=== PATIENT | female | born 1960 | race Caucasian/White ===

== ENCOUNTER 2018-02-22 12:09 | Emergency (ER) | payer OTHER ==
[~2018-02-22] VITALS: Ht 157.5 cm; Wt 69.9 kg
[2018-02-22 12:19] VITALS: BP 173/95
[2018-02-22] MEDS ORDERED: KETOROLAC TROMETH 60MG/2ML VIAL IM ONE (13:15)
== END 2018-02-22 15:06 | disposition home or self-care (01) ==
LOC: ER 12:09
DX: S63.105A Unspecified dislocation of left thumb, initial encounter (principal); S62.502A Fracture of unspecified phalanx of left thumb, initial encounter for closed fracture; W01.0XXA Fall on same level from slipping, tripping and stumbling without subsequent striking against object, initial encounter; Y93.E1 Activity, personal bathing and showering; Y92.89 Other specified places as the place of occurrence of the external cause; Y99.8 Other external cause status
CPT/HCPCS: 26725; 73140; 96372; 99284; J1885; 29130

== ENCOUNTER 2018-07-25 14:05 | Inpatient (IN) | payer OTHER ==
[~2018-07-25] VITALS: Ht 162.6 cm; Wt 75.9 kg
[2018-07-25] VITALS (26 sets, daily range): BP systolic 92–151; BP diastolic 73–112
[2018-07-25] MEDS ORDERED: EPINEPHrine HCL 1 MG/10 ML SYRG IV ONE (14:06)
[2018-07-25] MEDS ORDERED: SUCCINYLCHOLINE CHLORIDE 20 MG/ML 10ML VIAL IV ONE (14:07)
[2018-07-25] MEDS ORDERED: ETOMIDATE (2MG/ML) 20ML VIAL IV ONE (14:07)
[2018-07-25] MEDS ORDERED: NOREPINEPHRINE 8 MG/250ML KIT 250 ML IV ONE (14:09)
[2018-07-25] MEDS ORDERED: MIDAZOLAM DRIP 50 mg/50mL 50 ML IV ONE (14:14)
[2018-07-25] MEDS ORDERED: SODIUM CHLORIDE 0.9% 1,000 ML IVB ONE (14:16)
[2018-07-25] MEDS: MIDAZOLAM DRIP 50 mg/50mL 50 ML IV SCH ×2 (14:19→19:24)
[2018-07-25] MEDS: NOREPINEPHRINE 8 MG/250ML KIT 250 ML IV SCH (14:20)
[2018-07-25] MEDS ORDERED: IOHEXOL 350 MG/ML 100ML IJ ONE (15:51)
[2018-07-25 15:53] LABS: Hemoglobin 11.4 g/dL (12.2-16.2)
[2018-07-25 15:54] LABS: Hematocrit 36.4 % (36.0-46.0); Mean Corpuscular Hemoglobin 30.1 pg (28.0-32.0); Mean Corpuscular Hgb Conc. 31.2 g/dL (32.0-36.0); Mean Corpuscular Volume 96.4 fL (80.0-100.0); Platelet Count (auto) 336 10^3/uL (140-450); Red Blood Cells 3.77 10^6/uL (4.0-5.20); Red Cell Distribution Width 13.8 % (11.8-14.3)
[2018-07-25 16:05] LABS: Band Neutrophils % (manual) 0; Basophils % (manual) 0 (0.0-2.0); Blast Cells 0; Eosinophils % (manual) 0 (0-7); Promyelocytes % 0; Reactive Lymphocytes 0; White Blood Cell 33.5 10^3/uL (4.4-10.8)
[2018-07-25 16:09] LABS: Albumin 2.7 g/dL (3.4-5.0); Anion Gap 27 (5-15); Blood Urea Nitrogen 21 mg/dL (7-18); Calcium 7.3 mg/dL (8.5-10.1); Carbon Dioxide 11 mmol/L (21-32); Chloride 100 mmol/L (98-107); Glucose 327 mg/dL (74-106); Magnesium 2.6 mg/dL (1.6-2.6); Sodium 138 mmol/L (136-145)
[2018-07-25 16:11] LABS: BUN/Creatinine Ratio 13.1; Blood Alcohol < 3.0 mg/dL (0-5); GFR African American 42 mL/min; GFR Non-African American 35 mL/min
[2018-07-25 16:14] LABS: INR 1.05 (0.9-1.15); Partial Thromboplastin Time 27.4 sec (23.78-33.04); Prothrombin Time 11.2 sec (9.27-12.13)
[2018-07-25 16:18] LABS: Alanine Aminotransferase 66 U/L (13-56); Alkaline Phosphatase 59 U/L (45-117); Aspartate Aminotransferase 70 U/L (15-37); Bilirubin, Total 0.3 mg/dL (0.2-1.0); Total Protein 5.3 g/dL (6.4-8.2)
[2018-07-25 16:20] LABS: Urine Bacteria NONE SEEN /hpf (None Seen); Urine Blood 2+ /uL (Negative); Urine Budding Yeast OCCASIONAL /hpf (None Seen); Urine Hyaline Cast FEW /lpf (0 - 2); Urine Mucus FEW (None Seen); Urine WBC 2 /hpf (0 - 5)
[2018-07-25 16:27] LABS: Lactic Acid w/Reflex 16.1 mmol/L (0.4-2.0)
[2018-07-25] MEDS: SODIUM CHLORIDE 0.9% 1,000 ML IV SCH ×5 (16:29→23:28)
[2018-07-25] MEDS ORDERED: InsuLIN R (HUMAN) 100 UNITS in SODIUM CHL 0.9% 99 ML IV SCH (16:29)
[2018-07-25] MEDS ORDERED: NITROGLYCERIN 0.4 MG SL TAB SL PRN (16:30)
[2018-07-25] MEDS ORDERED: LORazepam 2MG/ML-1ML VIAL IV PRN (16:30)
[2018-07-25] MEDS ORDERED: MORPHINE SULF INJ 2 MG/ML SYRINGE 1ML IV PRN (16:30)
[2018-07-25] MEDS ORDERED: SODIUM CHLORIDE 0.9% 1,000 ML IV ONE (16:30)
[2018-07-25] MEDS ORDERED: CLINDAMYCIN 900MG IV 50 ML IV ONE (16:30)
[2018-07-25] MEDS ORDERED: POTASSIUM CHL 20MEQ/100ML 100 ML IV ONE (16:30)
[2018-07-25] MEDS: ACCU-CHEK COMFORT CURVE STRIP VI SCH ×3 (16:30→19:30)
[2018-07-25] MEDS ORDERED: PIPERACILLIN-TAZOB 3.375GM 100 ML IV ONE (16:30)
[2018-07-25] MEDS ORDERED: SODIUM CHLORIDE 0.9% 2,000 ML IV ONE (16:30)
[2018-07-25] MEDS ORDERED: PANTOPRAZOLE 40 MG/10 ML VIAL IV ONE (16:30)
[2018-07-25 16:40] LABS: Lymphocytes % (manual) 28 (10.0-50.0); Metamyelocytes % 1; Monocytes % (manual) 7 (0-12); Myelocytes % 1
[2018-07-25 16:55] LABS: Amylase 105 U/L (25-115); Lipase 152 U/L (73-393)
[2018-07-25 17:16] LABS: Alcohol, Urine < 3.0 mg/dL (0-5); Amphetamine Screen, Urine POSITIVE (NEGATIVE); Barbiturate Scree,Urine NEGATIVE (NEGATIVE); Benzodiazephine Screen, Urine NEGATIVE (NEGATIVE); Cannabinoid Screen, Urine POSITIVE (NEGATIVE); Cocaine Screen, Urine NEGATIVE (NEGATIVE); Opiate Scree,Urine POSITIVE (NEGATIVE); Phencyclidine Screen, Urine NEGATIVE (NEGATIVE)
[2018-07-25 18:58] LABS: Hematocrit 35.7 % (36.0-46.0); Hemoglobin 11.5 g/dL (12.2-16.2)
[2018-07-25 19:19] LABS: BUN/Creatinine Ratio 17.3; Calcium 7.4 mg/dL (8.5-10.1); Potassium 3.7 mmol/L (3.5-5.1)
[2018-07-25 19:25] LABS: Lactic Acid w/Reflex 6.3 mmol/L (0.4-2.0)
[2018-07-25] MEDS ORDERED: LIDOCAINE 2%HCL (LOCAL ANESTH.) INJ 20ML MDV ONE (20:09)
[2018-07-25] MEDS ORDERED: IODIXANOL 320MG/ML 100ML BTL IV ONE ×3 (20:09→21:54)
[2018-07-25] MEDS ORDERED: SODIUM CHLORIDE 0.9% 1,000 ML IV SCH (20:29)
[2018-07-25] MEDS ORDERED: fentaNYL CITRATE 100 MCG/2 ML VL ONE (22:19)
[2018-07-25] MEDS ORDERED: DEXTROSE (50%) 50ML SYRG IV PRN (22:30)
[2018-07-25] MEDS: PANTOPRAZOLE 40 MG/10 ML VIAL IV SCH (23:42)
[2018-07-25] MEDS: CLINDAMYCIN 600MG IV 50 ML IV SCH (23:42)
[2018-07-26] VITALS (101 sets, daily range): BP systolic 102–161; BP diastolic 52–111
[2018-07-26] MEDS ORDERED: InsuLIN REG 1unit/0.01ml Soln (100units/ml) SC SCH
[2018-07-26] MEDS ORDERED: ACCU-CHEK COMFORT CURVE STRIP VI SCH
[2018-07-26 00:30] LABS: BUN/Creatinine Ratio 24.1; Calcium 6.4 mg/dL (8.5-10.1); Potassium 3.4 mmol/L (3.5-5.1)
[2018-07-26] MEDS: PIPERACILLIN-TAZOB 3.375GM 100 ML IV SCH ×5 (00:54→22:05)
[2018-07-26 00:57] LABS: Hematocrit 36.2 % (36.0-46.0); Hemoglobin 11.9 g/dL (12.2-16.2)
[2018-07-26] MEDS ORDERED: DULO60CA PO (02:57)
[2018-07-26] MEDS ORDERED: ARIP2TAB PO (02:57)
[2018-07-26] MEDS ORDERED: LISD60CA PO (02:57)
[2018-07-26] MEDS ORDERED: SUMA50TA2 (02:57)
[2018-07-26] MEDS ORDERED: TRAZ100T2 PO (02:57)
[2018-07-26] MEDS ORDERED: LIOT5TAB PO (02:57)
[2018-07-26] MEDS ORDERED: [UNRECOGNIZED DRUG - CODE] PO (02:57)
[2018-07-26] MEDS ORDERED: LEVO88TA36 PO (02:57)
[2018-07-26] MEDS ORDERED: MIRT15TA3 PO (02:57)
[2018-07-26] MEDS ORDERED: HYDR-4072 PO (02:57)
[2018-07-26] MEDS ORDERED: DENO60SO SC (02:57)
[2018-07-26] MEDS ORDERED: POLY33504 PO (02:57)
[2018-07-26] MEDS: MIDAZOLAM DRIP 50 mg/50mL 50 ML IV SCH ×5 (04:45→22:06)
[2018-07-26 04:57] LABS: Amylase 529 U/L (25-115); Lipase 369 U/L (73-393)
[2018-07-26] MEDS: SODIUM CHLORIDE 0.9% 1,000 ML IV SCH ×4 (05:10→12:34)
[2018-07-26] MEDS: InsuLIN REG 1unit/0.01ml Soln (100units/ml) SC SCH ×3 (05:51→18:00)
[2018-07-26] MEDS: ACCU-CHEK COMFORT CURVE STRIP VI SCH ×3 (05:51→18:09)
[2018-07-26] MEDS: DEXTROSE (50%) 50ML SYRG IV PRN (06:07)
[2018-07-26 10:01] LABS: Alanine Aminotransferase 156 U/L (13-56); Alkaline Phosphatase 53 U/L (45-117); Bilirubin, Total 0.4 mg/dL (0.2-1.0); Total Protein 5.2 g/dL (6.4-8.2)
[2018-07-26] MEDS: PANTOPRAZOLE 40 MG/10 ML VIAL IV SCH ×2 (10:08→22:06)
[2018-07-26] MEDS: CLINDAMYCIN 600MG IV 50 ML IV SCH ×2 (10:08→18:08)
[2018-07-26 10:10] LABS: Anion Gap 11 (5-15); Aspartate Aminotransferase 124 U/L (15-37); BUN/Creatinine Ratio 25.2; Blood Urea Nitrogen 30 mg/dL (7-18); Calcium 6.1 mg/dL (8.5-10.1); Carbon Dioxide 20 mmol/L (21-32); Chloride 110 mmol/L (98-107); GFR African American 60 mL/min; GFR Non-African American 49 mL/min; Glucose 126 mg/dL (74-106); Potassium 3.1 mmol/L (3.5-5.1); Sodium 141 mmol/L (136-145)
[2018-07-26 10:11] LABS: Albumin 2.6 g/dL (3.4-5.0)
[2018-07-26 10:12] LABS: Basophils # (auto) 0 uL; Basophils % (auto) 0.2 % (0.0-2.0); Eosinophils # (auto) 0 uL; Hematocrit 34.8 % (36.0-46.0); Hemoglobin 11.5 g/dL (12.2-16.2); Lymphocytes # (auto) 2.5 uL; Lymphocytes % (auto) 11.1 % (10.0-50.0); Mean Corpuscular Volume 91.1 fL (80.0-100.0); Monocytes # (auto) 2.1 uL; Monocytes % (auto) 9.1 % (0.0-12.0); Neutrophils # (auto) 18 uL; Neutrophils % (auto) 79.6 % (37.0-80.0); Red Blood Cells 3.82 10^6/uL (4.0-5.20); White Blood Cell 22.7 10^3/uL (4.4-10.8)
[2018-07-26 10:13] LABS: Mean Corpuscular Hemoglobin 30.1 pg (28.0-32.0); Platelet Count (auto) 260 10^3/uL (140-450); Red Cell Distribution Width 13.5 % (11.8-14.3)
[2018-07-26] MEDS: NOREPINEPHRINE 8 MG/250ML KIT 250 ML IV SCH (14:30)
[2018-07-26] MEDS: MORPHINE SULF INJ 2 MG/ML SYRINGE 1ML IV PRN (15:02)
[2018-07-26] MEDS ORDERED: fentaNYL Drip 2500mCg/250mlNS 250 ML IV SCH (18:27)
[2018-07-26] MEDS ORDERED: fentaNYL Drip 2500mCg/250mlNS 250 ML IV ONE (18:30)
[2018-07-26] MEDS: fentaNYL Drip 2500mCg/250mlNS 250 ML IV SCH (19:15)
[2018-07-27] VITALS (86 sets, daily range): BP systolic 84–123; BP diastolic 51–98
[2018-07-27] MEDS: CLINDAMYCIN 600MG IV 50 ML IV SCH ×3 (02:27→18:29)
[2018-07-27] MEDS: SODIUM CHLORIDE 0.9% 1,000 ML IV SCH ×4 (02:27→17:53)
[2018-07-27] MEDS: MIDAZOLAM DRIP 50 mg/50mL 50 ML IV SCH ×3 (02:40→20:30)
[2018-07-27] MEDS: PIPERACILLIN-TAZOB 3.375GM 100 ML IV SCH ×4 (03:47→22:04)
[2018-07-27 04:24] LABS: Basophils # (auto) 0 uL; Basophils % (auto) 0.1 % (0.0-2.0); Eosinophils # (auto) 0 uL; Lymphocytes # (auto) 2.4 uL; Monocytes # (auto) 1.3 uL
[2018-07-27 04:28] LABS: Eosinophils % (auto) 0.1 % (0.0-7.0); Hematocrit 25.4 % (36.0-46.0); Hemoglobin 8.5 g/dL (12.2-16.2); Lymphocytes % (auto) 11.5 % (10.0-50.0); Mean Corpuscular Hemoglobin 30.9 pg (28.0-32.0); Mean Corpuscular Hgb Conc. 33.6 g/dL (32.0-36.0); Mean Corpuscular Volume 91.9 fL (80.0-100.0); Monocytes % (auto) 6.5 % (0.0-12.0); Neutrophils % (auto) 81.8 % (37.0-80.0); Platelet Count (auto) 200 10^3/uL (140-450); Red Blood Cells 2.77 10^6/uL (4.0-5.20); Red Cell Distribution Width 13.7 % (11.8-14.3); White Blood Cell 20.8 10^3/uL (4.4-10.8)
[2018-07-27 04:43] LABS: Albumin 2.3 g/dL (3.4-5.0); BUN/Creatinine Ratio 25.5; Magnesium 1.9 mg/dL (1.6-2.6)
[2018-07-27 04:48] LABS: Bilirubin, Total 0.5 mg/dL (0.2-1.0); Total Protein 4.9 g/dL (6.4-8.2)
[2018-07-27 04:50] LABS: Cholesterol 104 mg/dL (< 200); HDL Cholesterol 28 mg/dL (40-59); LDL Cholesterol 62 mg/dL (< 100); Triglycerides 155 mg/dL (< 150)
[2018-07-27 04:54] LABS: Calcium 5.8 mg/dL (8.5-10.1)
[2018-07-27] MEDS: InsuLIN REG 1unit/0.01ml Soln (100units/ml) SC SCH ×4 (06:00→18:00)
[2018-07-27] MEDS: ACCU-CHEK COMFORT CURVE STRIP VI SCH ×4 (06:55→18:00)
[2018-07-27] MEDS: CALCIUM GLUC 4.65meq/50ml D5AE 50 ML IV SCH ×2 (07:40→08:40)
[2018-07-27] MEDS: PANTOPRAZOLE 40 MG/10 ML VIAL IV SCH ×2 (10:30→22:04)
[2018-07-27] MEDS ORDERED: MAGNESIUM SULFATE 1GM/100ML 100 ML IV ONE (11:00)
[2018-07-27] MEDS ORDERED: POTASSIUM CHL 20MEQ/100ML 100 ML IV ONE (11:00)
[2018-07-27 11:14] LABS: Hemoglobin 7.7 g/dL (12.2-16.2)
[2018-07-27] MEDS ORDERED: IODIXANOL 320MG/ML 100ML BTL IV ONE ×2 (13:11→15:03)
[2018-07-27] MEDS ORDERED: LIDOCAINE 2% (LOCAL ANESTH.) PF 5ml SDV ONE (13:11)
[2018-07-27] MEDS: fentaNYL Drip 2500mCg/250mlNS 250 ML IV SCH (18:29)
[2018-07-27 22:32] LABS: Hemoglobin 9.7 g/dL (12.2-16.2)
[2018-07-28] VITALS (101 sets, daily range): BP systolic 83–155; BP diastolic 34–143
[2018-07-28] MEDS: DEXTROSE (50%) 50ML SYRG IV PRN ×2 (00:07→06:19)
[2018-07-28] MEDS: ACCU-CHEK COMFORT CURVE STRIP VI SCH ×4 (00:07→17:38)
[2018-07-28] MEDS: SODIUM CHLORIDE 0.9% 1,000 ML IV SCH ×5 (01:35→20:00)
[2018-07-28] MEDS: CLINDAMYCIN 600MG IV 50 ML IV SCH ×2 (01:58→09:44)
[2018-07-28] MEDS: MIDAZOLAM DRIP 50 mg/50mL 50 ML IV SCH ×6 (02:50→22:39)
[2018-07-28] MEDS: PIPERACILLIN-TAZOB 3.375GM 100 ML IV SCH ×4 (04:05→20:00)
[2018-07-28 04:17] LABS: Basophils # (auto) 0 uL; Basophils % (auto) 0.2 % (0.0-2.0); Eosinophils # (auto) 0 uL; Hematocrit 27.5 % (36.0-46.0); Hemoglobin 9.2 g/dL (12.2-16.2); Lymphocytes # (auto) 1.4 uL; Lymphocytes % (auto) 8.6 % (10.0-50.0); Mean Corpuscular Hemoglobin 30.6 pg (28.0-32.0); Mean Corpuscular Hgb Conc. 33.5 g/dL (32.0-36.0); Mean Corpuscular Volume 91.2 fL (80.0-100.0); Monocytes % (auto) 6.3 % (0.0-12.0); Neutrophils # (auto) 14.1 uL; Neutrophils % (auto) 84.9 % (37.0-80.0); Platelet Count (auto) 167 10^3/uL (140-450); Red Blood Cells 3.01 10^6/uL (4.0-5.20); Red Cell Distribution Width 13.9 % (11.8-14.3); White Blood Cell 16.6 10^3/uL (4.4-10.8)
[2018-07-28 04:27] LABS: Albumin 2.2 g/dL (3.4-5.0); BUN/Creatinine Ratio 26.3; Potassium 3.2 mmol/L (3.5-5.1)
[2018-07-28 04:30] LABS: Bilirubin, Total 0.4 mg/dL (0.2-1.0); Total Protein 5.2 g/dL (6.4-8.2)
[2018-07-28 04:39] LABS: Calcium 5.8 mg/dL (8.5-10.1)
[2018-07-28] MEDS: InsuLIN REG 1unit/0.01ml Soln (100units/ml) SC SCH ×4 (06:00→17:38)
[2018-07-28] MEDS: CALCIUM GLUC 4.65meq/50ml D5AE 50 ML IV SCH ×4 (07:01→14:57)
[2018-07-28] MEDS: PANTOPRAZOLE 40 MG/10 ML VIAL IV SCH ×2 (09:45→20:00)
[2018-07-28] MEDS ORDERED: TPN PER PHARMACY 0 ML IV SCH (10:15)
[2018-07-28] MEDS: POTASSIUM CHL 20MEQ/100ML 100 ML IV SCH ×2 (10:30→11:27)
[2018-07-28] MEDS: fentaNYL Drip 2500mCg/250mlNS 250 ML IV SCH (11:01)
[2018-07-28] MEDS: MORPHINE SULF INJ 2 MG/ML SYRINGE 1ML IV PRN (15:14)
[2018-07-28] MEDS: ACETAMINOPHEN 500 MG TAB PO PRN (15:53)
[2018-07-28 19:56] LABS: Hemoglobin 8.2 g/dL (12.2-16.2)
[2018-07-28 19:58] LABS: Hematocrit 24.3 % (36.0-46.0)
[2018-07-28] MEDS ORDERED: TPN PER PHARMACY IV NR ×8 (20:00)
[2018-07-29] VITALS (107 sets, daily range): BP systolic 84–172; BP diastolic 34–103
[2018-07-29] MEDS: ACCU-CHEK COMFORT CURVE STRIP VI SCH ×5 (00:18→23:44)
[2018-07-29 01:28] LABS: Hemoglobin 7.9 g/dL (12.2-16.2)
[2018-07-29] MEDS: PIPERACILLIN-TAZOB 3.375GM 100 ML IV SCH ×4 (03:49→22:11)
[2018-07-29] MEDS: MIDAZOLAM DRIP 50 mg/50mL 50 ML IV SCH ×5 (03:51→21:26)
[2018-07-29 04:42] LABS: Basophils # (auto) 0 uL; Basophils % (auto) 0.2 % (0.0-2.0); Eosinophils # (auto) 0 uL; Eosinophils % (auto) 0.1 % (0.0-7.0); Hematocrit 24.3 % (36.0-46.0); Hemoglobin 8.2 g/dL (12.2-16.2); Lymphocytes # (auto) 1.5 uL; Lymphocytes % (auto) 10.7 % (10.0-50.0); Mean Corpuscular Hgb Conc. 33.6 g/dL (32.0-36.0); Red Blood Cells 2.66 10^6/uL (4.0-5.20)
[2018-07-29 04:44] LABS: Mean Corpuscular Hemoglobin 30.7 pg (28.0-32.0); Mean Corpuscular Volume 91.4 fL (80.0-100.0); Monocytes # (auto) 0.9 uL; Monocytes % (auto) 6.3 % (0.0-12.0); Neutrophils # (auto) 11.5 uL; Neutrophils % (auto) 82.7 % (37.0-80.0); Platelet Count (auto) 171 10^3/uL (140-450); Red Cell Distribution Width 13.9 % (11.8-14.3); White Blood Cell 13.9 10^3/uL (4.4-10.8)
[2018-07-29 04:54] LABS: Albumin 2.1 g/dL (3.4-5.0); BUN/Creatinine Ratio 22.8; Bilirubin, Total 0.6 mg/dL (0.2-1.0); Calcium 6.8 mg/dL (8.5-10.1); Magnesium 2.3 mg/dL (1.6-2.6); Phosphorus 1.5 mg/dL (2.5-4.90); Potassium 3.2 mmol/L (3.5-5.1); Total Protein 5.3 g/dL (6.4-8.2)
[2018-07-29] MEDS: ACETAMINOPHEN 500 MG TAB PO PRN (05:25)
[2018-07-29] MEDS: fentaNYL Drip 2500mCg/250mlNS 250 ML IV SCH ×2 (05:25→17:47)
[2018-07-29] MEDS: SODIUM CHLORIDE 0.9% 1,000 ML IV SCH ×3 (05:25→17:47)
[2018-07-29] MEDS: InsuLIN REG 1unit/0.01ml Soln (100units/ml) SC SCH ×5 (06:00→23:45)
[2018-07-29] MEDS: PANTOPRAZOLE 40 MG/10 ML VIAL IV SCH ×2 (09:32→22:11)
[2018-07-29] MEDS: PROPOFOL 100 ML IV SCH ×3 (09:44→23:46)
[2018-07-29] MEDS: POTASSIUM CHL 20MEQ/100ML 100 ML IV SCH ×2 (09:58→11:26)
[2018-07-29] MEDS: ALBUTEROL SULF 2.5 MG/0.5ML(0.5%) NEB SOLN NEB PRN (10:06)
[2018-07-29] MEDS ORDERED: CALCIUM GLUC 4.65meq/50ml D5AE 50 ML IV ONE (10:30)
[2018-07-29] MEDS ORDERED: SODIUM PHOSP 40 MEQ in D5W 5% 250 ML IV ONE (11:00)
[2018-07-29 12:52] LABS: Hematocrit 23.5 % (36.0-46.0); Hemoglobin 7.9 g/dL (12.2-16.2)
[2018-07-29] MEDS: NOREPINEPHRINE 8 MG/250ML KIT 250 ML IV SCH (13:07)
[2018-07-29 13:21] LABS: Urine Bacteria FEW /hpf (None Seen); Urine Blood 3+ /uL (Negative); Urine Mucus FEW (None Seen); Urine Specific Gravity 1.026 (1.001-1.035); Urine WBC 27 /hpf (0 - 5)
[2018-07-29] MEDS ORDERED: TPN PER PHARMACY IV NR ×8 (20:00)
[2018-07-30] VITALS (88 sets, daily range): BP systolic 73–163; BP diastolic 28–107
[2018-07-30] MEDS: ALBUTEROL SULF 2.5 MG/0.5ML(0.5%) NEB SOLN NEB PRN (00:37)
[2018-07-30] MEDS: DEXMEDETOMIDINE HCL 400 MCG in D5W 5% 96 ML IV SCH ×2 (00:56→14:06)
[2018-07-30] MEDS: PIPERACILLIN-TAZOB 3.375GM 100 ML IV SCH ×4 (04:09→22:00)
[2018-07-30 04:32] LABS: Basophils # (auto) 0 uL; Basophils % (auto) 0.3 % (0.0-2.0); Eosinophils # (auto) 0.1 uL; Monocytes # (auto) 0.7 uL
[2018-07-30 04:34] LABS: Eosinophils % (auto) 1.2 % (0.0-7.0); Hematocrit 22.4 % (36.0-46.0); Lymphocytes # (auto) 1.2 uL; Lymphocytes % (auto) 12.3 % (10.0-50.0); Mean Corpuscular Volume 91.3 fL (80.0-100.0); Neutrophils # (auto) 7.7 uL; Neutrophils % (auto) 79.2 % (37.0-80.0); Platelet Count (auto) 187 10^3/uL (140-450); Red Blood Cells 2.45 10^6/uL (4.0-5.20); White Blood Cell 9.7 10^3/uL (4.4-10.8)
[2018-07-30 04:35] LABS: Hemoglobin 7.7 g/dL (12.2-16.2)
[2018-07-30 04:56] LABS: Albumin 1.7 g/dL (3.4-5.0); Bilirubin, Total 0.6 mg/dL (0.2-1.0); Calcium 6.4 mg/dL (8.5-10.1); Magnesium 2.4 mg/dL (1.6-2.6); Phosphorus 2.2 mg/dL (2.5-4.90); Total Protein 4.9 g/dL (6.4-8.2)
[2018-07-30] MEDS: ACETAMINOPHEN 500 MG TAB PO PRN ×2 (06:04→12:33)
[2018-07-30] MEDS: fentaNYL Drip 2500mCg/250mlNS 250 ML IV SCH ×2 (06:04→16:21)
[2018-07-30] MEDS: ACCU-CHEK COMFORT CURVE STRIP VI SCH ×3 (06:31→18:00)
[2018-07-30] MEDS: InsuLIN REG 1unit/0.01ml Soln (100units/ml) SC SCH ×3 (06:32→18:00)
[2018-07-30] MEDS: SODIUM CHLORIDE 0.9% 1,000 ML IV SCH ×2 (07:32→17:30)
[2018-07-30] MEDS: PROPOFOL 100 ML IV SCH ×3 (07:33→16:52)
[2018-07-30] MEDS ORDERED: LEV100T PO (08:13)
[2018-07-30] MEDS ORDERED: LIOT5TAB9 PO (08:13)
[2018-07-30] MEDS ORDERED: VANCOMYCIN PER PHARMACY 0 MG IV SCH (08:45)
[2018-07-30] MEDS: POTASSIUM CHL 20MEQ/100ML 100 ML IV SCH ×2 (09:09→12:09)
[2018-07-30] MEDS: MIDAZOLAM DRIP 50 mg/50mL 50 ML IV SCH ×2 (09:48→14:15)
[2018-07-30] MEDS ORDERED: CALCIUM GLUC 4.65meq/50ml D5AE 50 ML IV ONE (10:00)
[2018-07-30] MEDS: VANCOMYCIN 1GM/250ML 250 ML IV SCH (10:20)
[2018-07-30] MEDS: PANTOPRAZOLE 40 MG/10 ML VIAL IV SCH ×2 (10:20→22:30)
[2018-07-30] MEDS ORDERED: IOHEXOL 350 MG/ML 100ML IJ ONE (11:30)
[2018-07-30] MEDS ORDERED: SODIUM PHOSP 40 MEQ in D5W 5% 250 ML IV ONE (12:00)
[2018-07-30] MEDS: NOREPINEPHRINE 8 MG/250ML KIT 250 ML IV SCH ×2 (12:27→16:21)
[2018-07-30] MEDS ORDERED: FLUCONAZOLE 200MG/100ML 100 ML IV ONE (15:30)
[2018-07-30 17:13] LABS: Hemoglobin 8.2 g/dL (12.2-16.2)
[2018-07-30 17:15] LABS: Hematocrit 24.3 % (36.0-46.0)
[2018-07-30] MEDS ORDERED: fentaNYL Drip 2500mCg/250mlNS 250 ML IV SCH (19:15)
[2018-07-30] MEDS ORDERED: TPN PER PHARMACY IV NR ×9 (20:00)
[2018-07-30] MEDS: DULoxetine HCL 30 MG CAP PO SCH (22:00)
[2018-07-30] MEDS: ARIPIPRAZOLE 5 MG PO SCH (22:00)
[2018-07-30] MEDS: MIRTAZAPINE 30 MG TAB PO SCH (22:30)
[2018-07-31] VITALS (85 sets, daily range): BP systolic 87–140; BP diastolic 33–82
[2018-07-31] MEDS: VANCOMYCIN 1GM/250ML 250 ML IV SCH ×2 (04:00→21:35)
[2018-07-31] MEDS: PIPERACILLIN-TAZOB 3.375GM 100 ML IV SCH ×3 (04:00→16:05)
[2018-07-31 04:51] LABS: Eosinophils # (auto) 0.2 uL
[2018-07-31 04:53] LABS: Basophils # (auto) 0.1 uL; Basophils % (auto) 0.5 % (0.0-2.0); Eosinophils % (auto) 1.7 % (0.0-7.0); Hematocrit 22.9 % (36.0-46.0); Hemoglobin 7.7 g/dL (12.2-16.2); Lymphocytes # (auto) 0.8 uL; Lymphocytes % (auto) 7.5 % (10.0-50.0); Mean Corpuscular Hemoglobin 31.3 pg (28.0-32.0); Mean Corpuscular Hgb Conc. 33.7 g/dL (32.0-36.0); Monocytes % (auto) 8.7 % (0.0-12.0); Neutrophils # (auto) 9.1 uL; Neutrophils % (auto) 81.6 % (37.0-80.0); Platelet Count (auto) 219 10^3/uL (140-450); Red Blood Cells 2.46 10^6/uL (4.0-5.20); White Blood Cell 11.2 10^3/uL (4.4-10.8)
[2018-07-31 05:12] LABS: Albumin 1.6 g/dL (3.4-5.0); BUN/Creatinine Ratio 16.2; Bilirubin, Total 1.1 mg/dL (0.2-1.0); Calcium 6.3 mg/dL (8.5-10.1); Magnesium 2.5 mg/dL (1.6-2.6); Phosphorus 3.4 mg/dL (2.5-4.90); Potassium 3.5 mmol/L (3.5-5.1); Total Protein 4.8 g/dL (6.4-8.2)
[2018-07-31] MEDS: InsuLIN REG 1unit/0.01ml Soln (100units/ml) SC SCH ×4 (06:04→18:00)
[2018-07-31] MEDS: ACCU-CHEK COMFORT CURVE STRIP VI SCH ×4 (06:04→18:10)
[2018-07-31] MEDS: MIDAZOLAM DRIP 50 mg/50mL 50 ML IV SCH ×3 (07:33→23:08)
[2018-07-31] MEDS: NOREPINEPHRINE 8 MG/250ML KIT 250 ML IV SCH (07:34)
[2018-07-31] MEDS: fentaNYL Drip 2500mCg/250mlNS 250 ML IV SCH ×3 (07:34→23:05)
[2018-07-31] MEDS: FLUCONAZOLE 200MG/100ML 100 ML IV SCH (08:45)
[2018-07-31] MEDS: PANTOPRAZOLE 40 MG/10 ML VIAL IV SCH ×2 (09:48→22:11)
[2018-07-31] MEDS: PROPOFOL 100 ML IV SCH ×5 (09:49→22:18)
[2018-07-31] MEDS: SODIUM CHLORIDE 0.9% 1,000 ML IV SCH ×2 (11:19→12:15)
[2018-07-31] MEDS ORDERED: SODIUM CHLORIDE 0.9% 1,000 ML IV SCH ×2 (12:00)
[2018-07-31] MEDS ORDERED: FUROSEMIDE 40 MG/4 ML VIAL IV ONE (12:00)
[2018-07-31] MEDS ORDERED: CALCIUM GLUC 4.65meq/50ml D5AE 50 ML IV ONE (12:30)
[2018-07-31] MEDS ORDERED: POTASSIUM EFFERVESENT TAB 25 MEQ ONE (13:34)
[2018-07-31] MEDS: ALBUMIN 25% 100 ML IV SCH ×2 (14:51→22:57)
[2018-07-31] MEDS ORDERED: TPN PER PHARMACY IV NR ×8 (20:00)
[2018-07-31] MEDS: DULoxetine HCL 30 MG CAP PO SCH (22:00)
[2018-07-31] MEDS: ARIPIPRAZOLE 5 MG PO SCH (22:00)
[2018-07-31] MEDS: MIRTAZAPINE 30 MG TAB PO SCH (22:13)
[2018-08-01] VITALS (99 sets, daily range): BP systolic 89–178; BP diastolic 35–108
[2018-08-01] MEDS: ACCU-CHEK COMFORT CURVE STRIP VI SCH ×4 (00:12→17:44)
[2018-08-01] MEDS: PIPERACILLIN-TAZOB 3.375GM 100 ML IV SCH ×5 (00:12→21:54)
[2018-08-01] MEDS: InsuLIN REG 1unit/0.01ml Soln (100units/ml) SC SCH ×4 (00:21→17:44)
[2018-08-01] MEDS: PROPOFOL 100 ML IV SCH ×5 (01:47→22:30)
[2018-08-01] MEDS: NOREPINEPHRINE 8 MG/250ML KIT 250 ML IV SCH (01:59)
[2018-08-01 04:13] LABS: Basophils # (auto) 0 uL; Basophils % (auto) 0.3 % (0.0-2.0); Eosinophils # (auto) 0.2 uL; Hemoglobin 7.6 g/dL (12.2-16.2); Lymphocytes # (auto) 0.8 uL; Mean Corpuscular Volume 91.9 fL (80.0-100.0); Monocytes # (auto) 1.1 uL; Monocytes % (auto) 11.2 % (0.0-12.0); Neutrophils # (auto) 7.4 uL; White Blood Cell 9.4 10^3/uL (4.4-10.8)
[2018-08-01 04:16] LABS: Hematocrit 22.7 % (36.0-46.0); Lymphocytes % (auto) 8.3 % (10.0-50.0); Mean Corpuscular Hemoglobin 30.9 pg (28.0-32.0); Mean Corpuscular Hgb Conc. 33.6 g/dL (32.0-36.0); Neutrophils % (auto) 78.2 % (37.0-80.0); Platelet Count (auto) 237 10^3/uL (140-450); Red Blood Cells 2.47 10^6/uL (4.0-5.20); Red Cell Distribution Width 14.2 % (11.8-14.3)
[2018-08-01 04:35] LABS: Albumin 2.3 g/dL (3.4-5.0); Bilirubin, Total 2.6 mg/dL (0.2-1.0); Calcium 6.5 mg/dL (8.5-10.1); Magnesium 2.4 mg/dL (1.6-2.6); Potassium 3.6 mmol/L (3.5-5.1); Total Protein 5.4 g/dL (6.4-8.2)
[2018-08-01] MEDS: ALBUMIN 25% 100 ML IV SCH (06:51)
[2018-08-01] MEDS: MIDAZOLAM DRIP 50 mg/50mL 50 ML IV SCH ×2 (06:51→16:28)
[2018-08-01] MEDS: fentaNYL Drip 2500mCg/250mlNS 250 ML IV SCH ×2 (07:28→16:40)
[2018-08-01] MEDS: SODIUM CHLORIDE 0.9% 1,000 ML IV SCH (08:15)
[2018-08-01] MEDS: PANTOPRAZOLE 40 MG/10 ML VIAL IV SCH ×2 (09:57→21:54)
[2018-08-01] MEDS: FLUCONAZOLE 200MG/100ML 100 ML IV SCH (09:58)
[2018-08-01] MEDS: POTASSIUM EFFERVESENT TAB 25 MEQ PO SCH (09:59)
[2018-08-01] MEDS ORDERED: FUROSEMIDE 40 MG/4 ML VIAL IV SCH (10:00)
[2018-08-01] MEDS ORDERED: POTASSIUM CHL 20 Meq TABLET PO SCH (10:00)
[2018-08-01] MEDS ORDERED: CALCIUM GLUC 4.65meq/50ml D5AE 50 ML IV ONE (10:30)
[2018-08-01] MEDS: ACETAMINOPHEN 500 MG TAB PO PRN (12:57)
[2018-08-01] MEDS: VANCOMYCIN 1,500 MG in D5W 5% 250 ML IV SCH (15:52)
[2018-08-01] MEDS ORDERED: metroNIDAZOLE 500MG/100ML 100 ML IV ONE (19:15)
[2018-08-01] MEDS ORDERED: TPN PER PHARMACY IV NR ×8 (20:00)
[2018-08-01] MEDS: metroNIDAZOLE 500MG/100ML 100 ML IV SCH (20:00)
[2018-08-01] MEDS: MIRTAZAPINE 30 MG TAB PO SCH (21:55)
[2018-08-01] MEDS: ARIPIPRAZOLE 5 MG PO SCH (21:55)
[2018-08-01] MEDS: DULoxetine HCL 30 MG CAP PO SCH (22:00)
[2018-08-01] MEDS: ALBUTEROL SULF 2.5 MG/0.5ML(0.5%) NEB SOLN NEB PRN (22:29)
[2018-08-02] VITALS (97 sets, daily range): BP systolic 93–212; BP diastolic 40–115
[2018-08-02] MEDS: MIDAZOLAM DRIP 50 mg/50mL 50 ML IV SCH ×2 (03:00→16:39)
[2018-08-02] MEDS: metroNIDAZOLE 500MG/100ML 100 ML IV SCH ×3 (03:23→20:15)
[2018-08-02] MEDS: PROPOFOL 100 ML IV SCH ×4 (03:30→18:46)
[2018-08-02] MEDS: PIPERACILLIN-TAZOB 3.375GM 100 ML IV SCH ×4 (04:00→22:04)
[2018-08-02] MEDS: SODIUM CHLORIDE 0.9% 1,000 ML IV SCH (04:15)
[2018-08-02 04:22] LABS: Albumin 2.3 g/dL (3.4-5.0); Bilirubin, Total 2.8 mg/dL (0.2-1.0); Calcium 6.7 mg/dL (8.5-10.1); Magnesium 2.3 mg/dL (1.6-2.6); Phosphorus 2.7 mg/dL (2.5-4.90); Potassium 3.7 mmol/L (3.5-5.1); Total Protein 5.8 g/dL (6.4-8.2)
[2018-08-02] MEDS: fentaNYL Drip 2500mCg/250mlNS 250 ML IV SCH ×2 (05:00→18:16)
[2018-08-02] MEDS: InsuLIN REG 1unit/0.01ml Soln (100units/ml) SC SCH ×4 (06:00→17:37)
[2018-08-02] MEDS: ACCU-CHEK COMFORT CURVE STRIP VI SCH ×4 (06:00→17:37)
[2018-08-02] MEDS ORDERED: ENOXAPARIN SOD 40 MG/0.4 ML SYRINGE SC ONE (09:30)
[2018-08-02] MEDS: VANCOMYCIN 1,500 MG in D5W 5% 250 ML IV SCH (09:31)
[2018-08-02] MEDS: POTASSIUM EFFERVESENT TAB 25 MEQ PO SCH (09:32)
[2018-08-02] MEDS: PANTOPRAZOLE 40 MG/10 ML VIAL IV SCH ×2 (09:32→22:05)
[2018-08-02] MEDS: FLUCONAZOLE 200MG/100ML 100 ML IV SCH (09:32)
[2018-08-02 09:42] LABS: Basophils # (auto) 0 uL; Basophils % (auto) 0.4 % (0.0-2.0); Eosinophils # (auto) 0.1 uL; Mean Corpuscular Hemoglobin 30.4 pg (28.0-32.0); Nucleated Red Blood Cells % 0.2 %
[2018-08-02 09:44] LABS: Eosinophils % (auto) 0.7 % (0.0-7.0); Hematocrit 24.4 % (36.0-46.0); Lymphocytes # (auto) 0.8 uL; Lymphocytes % (auto) 7.1 % (10.0-50.0); Mean Corpuscular Hgb Conc. 32.9 g/dL (32.0-36.0); Mean Corpuscular Volume 92.5 fL (80.0-100.0); Monocytes # (auto) 1.3 uL; Monocytes % (auto) 11.8 % (0.0-12.0); Neutrophils # (auto) 8.6 uL; Platelet Count (auto) 290 10^3/uL (140-450); Red Blood Cells 2.64 10^6/uL (4.0-5.20); Red Cell Distribution Width 14.5 % (11.8-14.3); White Blood Cell 10.8 10^3/uL (4.4-10.8)
[2018-08-02 10:47] LABS: Amylase 88 U/L (25-115); Lipase 251 U/L (73-393)
[2018-08-02] MEDS ORDERED: CALCIUM GLUC 4.65meq/50ml D5AE 50 ML IV ONE ×2 (11:15→18:00)
[2018-08-02] MEDS: NOREPINEPHRINE 8 MG/250ML KIT 250 ML IV SCH (12:27)
[2018-08-02] MEDS: ALBUTEROL SULF 2.5 MG/0.5ML(0.5%) NEB SOLN NEB PRN (18:25)
[2018-08-02] MEDS ORDERED: TPN PER PHARMACY IV NR ×8 (20:00)
[2018-08-02] MEDS: DULoxetine HCL 30 MG CAP PO SCH (22:00)
[2018-08-02] MEDS: ARIPIPRAZOLE 5 MG PO SCH (22:00)
[2018-08-02] MEDS: MIRTAZAPINE 30 MG TAB PO SCH (22:04)
[2018-08-03] VITALS (90 sets, daily range): BP systolic 97–155; BP diastolic 48–118
[2018-08-03] MEDS: ACCU-CHEK COMFORT CURVE STRIP VI SCH ×5 (00:11→23:48)
[2018-08-03] MEDS: SODIUM CHLORIDE 0.9% 1,000 ML IV SCH ×2 (00:15→19:54)
[2018-08-03] MEDS: PROPOFOL 100 ML IV SCH ×3 (00:20→22:27)
[2018-08-03] MEDS: ALBUTEROL SULF 2.5 MG/0.5ML(0.5%) NEB SOLN NEB PRN (00:33)
[2018-08-03 03:59] LABS: Eosinophils # (auto) 0.1 uL; Red Cell Distribution Width 14.7 % (11.8-14.3)
[2018-08-03 04:00] LABS: Basophils # (auto) 0 uL; Basophils % (auto) 0.3 % (0.0-2.0); Eosinophils % (auto) 1.3 % (0.0-7.0); Hematocrit 23.1 % (36.0-46.0); Hemoglobin 7.7 g/dL (12.2-16.2); Lymphocytes # (auto) 0.7 uL; Lymphocytes % (auto) 6.6 % (10.0-50.0); Mean Corpuscular Hemoglobin 30.9 pg (28.0-32.0); Mean Corpuscular Hgb Conc. 33.5 g/dL (32.0-36.0); Mean Corpuscular Volume 92.2 fL (80.0-100.0); Monocytes # (auto) 0.8 uL; Monocytes % (auto) 8.1 % (0.0-12.0); Neutrophils # (auto) 8.5 uL; Neutrophils % (auto) 83.7 % (37.0-80.0); Nucleated Red Blood Cells % 0.1 %; Platelet Count (auto) 277 10^3/uL (140-450); White Blood Cell 10.2 10^3/uL (4.4-10.8)
[2018-08-03] MEDS: metroNIDAZOLE 500MG/100ML 100 ML IV SCH (04:00)
[2018-08-03] MEDS: VANCOMYCIN 1,500 MG in D5W 5% 250 ML IV SCH ×2 (04:16→22:04)
[2018-08-03] MEDS: PIPERACILLIN-TAZOB 3.375GM 100 ML IV SCH ×4 (04:16→22:06)
[2018-08-03 04:24] LABS: BUN/Creatinine Ratio 18.9; Calcium 6.7 mg/dL (8.5-10.1); Magnesium 1.7 mg/dL (1.6-2.6); Potassium 4.2 mmol/L (3.5-5.1); Total Protein 5.6 g/dL (6.4-8.2)
[2018-08-03] MEDS: InsuLIN REG 1unit/0.01ml Soln (100units/ml) SC SCH ×5 (05:41→23:48)
[2018-08-03] MEDS: fentaNYL Drip 2500mCg/250mlNS 250 ML IV SCH ×2 (06:12→21:09)
[2018-08-03] MEDS ORDERED: CALCIUM GLUC 4.65meq/50ml D5AE 50 ML IV ONE (09:45)
[2018-08-03] MEDS: ENOXAPARIN SOD 40 MG/0.4 ML SYRINGE SC SCH (10:00)
[2018-08-03] MEDS ORDERED: POTASSIUM CHL 20MEQ/100ML 100 ML IV ONE (11:45)
[2018-08-03] MEDS ORDERED: FUROSEMIDE 40 MG/4 ML VIAL IV ONE ×2 (11:45→17:45)
[2018-08-03] MEDS ORDERED: MICAFUNGIN SODIUM 100 MG in SODIUM CHL 0.9% 100 ML IV ONE (11:45)
[2018-08-03] MEDS: PANTOPRAZOLE 40 MG/10 ML VIAL IV SCH ×2 (12:17→22:04)
[2018-08-03] MEDS: POTASSIUM EFFERVESENT TAB 25 MEQ PO SCH (12:17)
[2018-08-03] MEDS: NOREPINEPHRINE 8 MG/250ML KIT 250 ML IV SCH (12:27)
[2018-08-03] MEDS: MIDAZOLAM DRIP 50 mg/50mL 50 ML IV SCH (14:00)
[2018-08-03] MEDS ORDERED: TPN PER PHARMACY IV NR ×9 (20:00)
[2018-08-03] MEDS: ACETAMINOPHEN 500 MG TAB PO PRN (21:09)
[2018-08-04] VITALS (103 sets, daily range): BP systolic 97–177; BP diastolic 50–99
[2018-08-04] MEDS: MIDAZOLAM DRIP 50 mg/50mL 50 ML IV SCH ×3 (00:18→21:34)
[2018-08-04] MEDS: PIPERACILLIN-TAZOB 3.375GM 100 ML IV SCH ×4 (03:30→21:33)
[2018-08-04 03:54] LABS: Hematocrit 27.4 % (36.0-46.0); Mean Corpuscular Hemoglobin 29.8 pg (28.0-32.0); Mean Corpuscular Hgb Conc. 32.8 g/dL (32.0-36.0); Platelet Count (auto) 357 10^3/uL (140-450); Red Blood Cells 3.01 10^6/uL (4.0-5.20); Red Cell Distribution Width 14.7 % (11.8-14.3); White Blood Cell 8.3 10^3/uL (4.4-10.8)
[2018-08-04 03:58] LABS: Basophils % (manual) 0 (0.0-2.0); Blast Cells 0; Metamyelocytes % 0; Myelocytes % 0; Promyelocytes % 0; Reactive Lymphocytes 0
[2018-08-04 04:21] LABS: Albumin 2.2 g/dL (3.4-5.0); BUN/Creatinine Ratio 20.6; Bilirubin, Total 3.6 mg/dL (0.2-1.0); Calcium 7.7 mg/dL (8.5-10.1); Magnesium 2.6 mg/dL (1.6-2.6); Phosphorus 4.3 mg/dL (2.5-4.90); Potassium 3.9 mmol/L (3.5-5.1); Pre Albumin 10.9 mg/dL (20.0-40.0); Total Protein 6.5 g/dL (6.4-8.2)
[2018-08-04 04:57] LABS: Band Neutrophils % (manual) 4; Eosinophils % (manual) 1 (0-7); Lymphocytes % (manual) 5 (10.0-50.0); Monocytes % (manual) 6 (0-12)
[2018-08-04] MEDS: InsuLIN REG 1unit/0.01ml Soln (100units/ml) SC SCH ×3 (05:31→18:00)
[2018-08-04] MEDS: ACCU-CHEK COMFORT CURVE STRIP VI SCH ×3 (05:31→18:00)
[2018-08-04] MEDS: ACETAMINOPHEN 500 MG TAB PO PRN (09:51)
[2018-08-04] MEDS: MICAFUNGIN SODIUM 100 MG in SODIUM CHL 0.9% 100 ML IV SCH (09:54)
[2018-08-04] MEDS: POTASSIUM EFFERVESENT TAB 25 MEQ PO SCH (09:54)
[2018-08-04] MEDS: ENOXAPARIN SOD 40 MG/0.4 ML SYRINGE SC SCH (09:54)
[2018-08-04] MEDS: PANTOPRAZOLE 40 MG/10 ML VIAL IV SCH ×2 (09:54→21:33)
[2018-08-04] MEDS ORDERED: FUROSEMIDE 40 MG/4 ML VIAL IV SCH (10:00)
[2018-08-04] MEDS ORDERED: Jevity 1.2 Cal/Fiber 1 Liter GT SCH (12:15)
[2018-08-04] MEDS: NOREPINEPHRINE 8 MG/250ML KIT 250 ML IV SCH (12:26)
[2018-08-04] MEDS: VANCOMYCIN 1,500 MG in D5W 5% 250 ML IV SCH (15:52)
[2018-08-04] MEDS: SODIUM CHLORIDE 0.9% 1,000 ML IV SCH (16:15)
[2018-08-04] MEDS ORDERED: TPN PER PHARMACY IV NR ×8 (20:00)
[2018-08-04] MEDS: fentaNYL Drip 2500mCg/250mlNS 250 ML IV SCH (20:13)
[2018-08-04] MEDS: ALBUTEROL SULF 2.5 MG/0.5ML(0.5%) NEB SOLN NEB PRN (22:56)
[2018-08-05] VITALS (90 sets, daily range): BP systolic 93–189; BP diastolic 57–128
[2018-08-05] MEDS: ACCU-CHEK COMFORT CURVE STRIP VI SCH ×4 (00:21→18:23)
[2018-08-05] MEDS: InsuLIN REG 1unit/0.01ml Soln (100units/ml) SC SCH ×4 (00:21→18:26)
[2018-08-05] MEDS: fentaNYL Drip 2500mCg/250mlNS 250 ML IV SCH ×2 (01:47→19:15)
[2018-08-05] MEDS: PIPERACILLIN-TAZOB 3.375GM 100 ML IV SCH ×4 (03:37→21:39)
[2018-08-05 04:07] LABS: Hematocrit 29.3 % (36.0-46.0); Hemoglobin 9.5 g/dL (12.2-16.2); Mean Corpuscular Hemoglobin 29.3 pg (28.0-32.0); Mean Corpuscular Hgb Conc. 32.4 g/dL (32.0-36.0); Mean Corpuscular Volume 90.2 fL (80.0-100.0); Platelet Count (auto) 413 10^3/uL (140-450); Red Blood Cells 3.25 10^6/uL (4.0-5.20); Red Cell Distribution Width 14.7 % (11.8-14.3); White Blood Cell 11.6 10^3/uL (4.4-10.8)
[2018-08-05 04:11] LABS: Basophils % (manual) 0 (0.0-2.0); Blast Cells 0; Promyelocytes % 0; Reactive Lymphocytes 0
[2018-08-05 04:33] LABS: Albumin 2.2 g/dL (3.4-5.0); BUN/Creatinine Ratio 30.2; Bilirubin, Total 3.2 mg/dL (0.2-1.0); Calcium 7.7 mg/dL (8.5-10.1); Magnesium 2.8 mg/dL (1.6-2.6); Phosphorus 2.3 mg/dL (2.5-4.90); Potassium 3.9 mmol/L (3.5-5.1); Total Protein 6.7 g/dL (6.4-8.2)
[2018-08-05 04:50] LABS: Band Neutrophils % (manual) 4; Eosinophils % (manual) 1 (0-7); Lymphocytes % (manual) 10 (10.0-50.0); Metamyelocytes % 2; Monocytes % (manual) 5 (0-12); Myelocytes % 2
[2018-08-05] MEDS: PROPOFOL 100 ML IV SCH (09:31)
[2018-08-05] MEDS: PANTOPRAZOLE 40 MG/10 ML VIAL IV SCH ×2 (09:45→21:39)
[2018-08-05] MEDS: VANCOMYCIN 1,500 MG in D5W 5% 250 ML IV SCH (09:46)
[2018-08-05] MEDS: ENOXAPARIN SOD 40 MG/0.4 ML SYRINGE SC SCH (10:00)
[2018-08-05] MEDS: MICAFUNGIN SODIUM 100 MG in SODIUM CHL 0.9% 100 ML IV SCH (11:07)
[2018-08-05 11:24] LABS: INR 0.91 (0.9-1.15); Prothrombin Time 9.8 sec (9.27-12.13)
[2018-08-05] MEDS: ALBUTEROL SULF 2.5 MG/0.5ML(0.5%) NEB SOLN NEB PRN (11:51)
[2018-08-05] MEDS: SODIUM CHLORIDE 0.9% 1,000 ML IV SCH (12:15)
[2018-08-05] MEDS: NOREPINEPHRINE 8 MG/250ML KIT 250 ML IV SCH (12:27)
[2018-08-05] MEDS ORDERED: POTASSIUM EFFERVESENT TAB 25 MEQ PO ONE (12:30)
[2018-08-05] MEDS ORDERED: FUROSEMIDE 20 MG/2 ML VIAL IV ONE (12:30)
[2018-08-05] MEDS ORDERED: FUROSEMIDE 20 MG/2 ML VIAL ONE (12:35)
[2018-08-05] MEDS ORDERED: LIDOCAINE 1% (LOCAL ANESTH.) PF 5ml SDV ID ONE (16:00)
[2018-08-05] MEDS: ONDANSETRON HCL 4 MG/2 ML VIAL IV PRN (18:18)
[2018-08-05] MEDS ORDERED: TPN PER PHARMACY IV NR ×10 (20:00)
[2018-08-05] MEDS ORDERED: LORazepam 2MG/ML-1ML VIAL IM ONE (21:00)
[2018-08-05] MEDS: SODIUM CHLOR 0.9% PF (SALINE LOCK) 10ML VIAL/SYR IV SCH (21:39)
[2018-08-05] MEDS ORDERED: HYDROcodone-ACET 10/325MG TAB ONE (22:56)
[2018-08-05] MEDS ORDERED: HYDROcodone-ACET 10/325MG TAB PO ONE (23:20)
[2018-08-06] VITALS (46 sets, daily range): BP systolic 118–188; BP diastolic 68–147
[2018-08-06] MEDS: PIPERACILLIN-TAZOB 3.375GM 100 ML IV SCH ×4 (03:58→22:00)
[2018-08-06] MEDS: VANCOMYCIN 1,500 MG in D5W 5% 250 ML IV SCH (03:58)
[2018-08-06 04:07] LABS: Hematocrit 30.2 % (36.0-46.0); Hemoglobin 10.2 g/dL (12.2-16.2); Mean Corpuscular Hemoglobin 30.4 pg (28.0-32.0); Mean Corpuscular Hgb Conc. 33.7 g/dL (32.0-36.0); Mean Corpuscular Volume 90.2 fL (80.0-100.0); Platelet Count (auto) 426 10^3/uL (140-450); Red Blood Cells 3.35 10^6/uL (4.0-5.20); Red Cell Distribution Width 14.5 % (11.8-14.3)
[2018-08-06 04:13] LABS: Basophils % (manual) 0 (0.0-2.0); Blast Cells 0; Eosinophils % (manual) 0 (0-7); Promyelocytes % 0; Reactive Lymphocytes 0
[2018-08-06 04:29] LABS: Albumin 2.4 g/dL (3.4-5.0); BUN/Creatinine Ratio 42.9; Bilirubin, Total 1.9 mg/dL (0.2-1.0); Calcium 7.9 mg/dL (8.5-10.1); Magnesium 2.8 mg/dL (1.6-2.6); Potassium 3.6 mmol/L (3.5-5.1)
[2018-08-06 04:51] LABS: Band Neutrophils % (manual) 3; Lymphocytes % (manual) 8 (10.0-50.0); Metamyelocytes % 2; Monocytes % (manual) 10 (0-12); Myelocytes % 3
[2018-08-06] MEDS: ACCU-CHEK COMFORT CURVE STRIP VI SCH ×4 (05:35→18:03)
[2018-08-06] MEDS: InsuLIN REG 1unit/0.01ml Soln (100units/ml) SC SCH ×4 (05:35→18:06)
[2018-08-06] MEDS: SODIUM CHLORIDE 0.9% 1,000 ML IV SCH (08:15)
[2018-08-06] MEDS: ONDANSETRON HCL 4 MG/2 ML VIAL IV PRN ×3 (08:45→20:40)
[2018-08-06] MEDS: PROPOFOL 100 ML IV SCH (09:31)
[2018-08-06] MEDS ORDERED: VANCOMYCIN 1,250 MG in D5W 5% 250 ML IV SCH (10:00)
[2018-08-06] MEDS ORDERED: fentaNYL 50MCG/HR 50 MCG/HR PAT TD SCH (10:00)
[2018-08-06] MEDS: PANTOPRAZOLE 40 MG/10 ML VIAL IV SCH (10:17)
[2018-08-06] MEDS: MICAFUNGIN SODIUM 100 MG in SODIUM CHL 0.9% 100 ML IV SCH (10:17)
[2018-08-06] MEDS: SODIUM CHLOR 0.9% PF (SALINE LOCK) 10ML VIAL/SYR IV SCH ×2 (10:18→22:00)
[2018-08-06] MEDS: ENOXAPARIN SOD 40 MG/0.4 ML SYRINGE SC SCH (10:18)
[2018-08-06] MEDS ORDERED: LEVOTHYROXINE SODIUM 100 MCG TAB PO ONE (10:45)
[2018-08-06] MEDS ORDERED: POTASSIUM PHOSP 22MEQ(15MMOLE) in NS 100 ML IV ONE (11:00)
[2018-08-06] MEDS ORDERED: PROMETHAZINE HCL 25 MG/ML 1ML ONE (11:46)
[2018-08-06] MEDS: VANCOMYCIN 1,250 MG in D5W 5% 250 ML IV SCH (13:24)
[2018-08-06] MEDS: HYDROcodone-ACET 5/325MG TAB PO PRN ×2 (13:29→23:02)
[2018-08-06] MEDS: PROMETHAZINE HCL 25 MG/ML 1ML IV PRN ×3 (15:11→23:01)
[2018-08-06] MEDS ORDERED: MORPHINE SULFATE 4 MG/ML SYR/VIAL IV PRN (15:15)
[2018-08-06] MEDS ORDERED: MORPHINE SULFATE 4 MG/ML SYR/VIAL IV ONE (17:30)
[2018-08-06] MEDS ORDERED: MORPHINE SULFATE 4 MG/ML SYR/VIAL ONE (17:33)
[2018-08-06] MEDS ORDERED: SODIUM PHOSPHATES IV NR ×9 (20:00)
[2018-08-06] MEDS ORDERED: [UNRECOGNIZED DRUG - OTHER] IV NR ×9 (20:00)
[2018-08-06] MEDS ORDERED: SODIUM CHLORIDE IV NR ×9 (20:00)
[2018-08-06] MEDS ORDERED: FAT EMULSION IV NR ×9 (20:00)
[2018-08-06] MEDS: MORPHINE SULFATE 4 MG/ML SYR/VIAL IV PRN (20:06)
[2018-08-06] MEDS: DULoxetine HCL 30 MG CAP PO SCH (22:00)
[2018-08-06] MEDS: LABETALOL HCL 5 MG/ML ML 20ML VIAL IV PRN (22:16)
[2018-08-07] VITALS (54 sets, daily range): BP systolic 131–183; BP diastolic 78–143
[2018-08-07] MEDS: MORPHINE SULFATE 4 MG/ML SYR/VIAL IV PRN ×6 (00:05→18:10)
[2018-08-07] MEDS: LORazepam 2MG/ML-1ML VIAL IV PRN (02:02)
[2018-08-07] MEDS: VANCOMYCIN 1,250 MG in D5W 5% 250 ML IV SCH ×2 (02:03→14:33)
[2018-08-07] MEDS: PIPERACILLIN-TAZOB 3.375GM 100 ML IV SCH ×4 (04:00→21:54)
[2018-08-07 04:24] LABS: Hematocrit 29.3 % (36.0-46.0); Hemoglobin 9.7 g/dL (12.2-16.2); Mean Corpuscular Hemoglobin 30.3 pg (28.0-32.0); Mean Corpuscular Hgb Conc. 32.9 g/dL (32.0-36.0); Mean Corpuscular Volume 92.2 fL (80.0-100.0); Platelet Count (auto) 425 10^3/uL (140-450); Red Blood Cells 3.18 10^6/uL (4.0-5.20); Red Cell Distribution Width 14.8 % (11.8-14.3); White Blood Cell 16.7 10^3/uL (4.4-10.8)
[2018-08-07 04:26] LABS: Basophils % (manual) 0 (0.0-2.0); Blast Cells 0; Metamyelocytes % 0; Myelocytes % 0; Promyelocytes % 0; Reactive Lymphocytes 0
[2018-08-07 04:51] LABS: Albumin 2.4 g/dL (3.4-5.0); BUN/Creatinine Ratio 34.7; Bilirubin, Total 1.6 mg/dL (0.2-1.0); Calcium 7.3 mg/dL (8.5-10.1); Magnesium 2.7 mg/dL (1.6-2.6); Phosphorus 2.8 mg/dL (2.5-4.90); Potassium 3.9 mmol/L (3.5-5.1); Total Protein 6.4 g/dL (6.4-8.2)
[2018-08-07 05:00] LABS: Band Neutrophils % (manual) 2; Eosinophils % (manual) 1 (0-7); Lymphocytes % (manual) 6 (10.0-50.0); Monocytes % (manual) 11 (0-12)
[2018-08-07] MEDS: ONDANSETRON HCL 4 MG/2 ML VIAL IV PRN ×5 (05:10→21:53)
[2018-08-07] MEDS: ACCU-CHEK COMFORT CURVE STRIP VI SCH ×4 (06:00→18:03)
[2018-08-07] MEDS: InsuLIN REG 1unit/0.01ml Soln (100units/ml) SC SCH ×4 (06:00→18:00)
[2018-08-07] MEDS: LEVOTHYROXINE SODIUM 100 MCG TAB PO SCH (06:50)
[2018-08-07] MEDS: PROMETHAZINE HCL 25 MG/ML 1ML IV PRN (08:08)
[2018-08-07] MEDS: HYDROcodone-ACET 5/325MG TAB PO PRN (09:28)
[2018-08-07] MEDS: ENOXAPARIN SOD 40 MG/0.4 ML SYRINGE SC SCH (09:28)
[2018-08-07] MEDS: PANTOPRAZOLE 40 MG TAB PO SCH (09:28)
[2018-08-07] MEDS: MICAFUNGIN SODIUM 100 MG in SODIUM CHL 0.9% 100 ML IV SCH (09:28)
[2018-08-07] MEDS: DULoxetine HCL 30 MG CAP PO SCH ×2 (09:28→21:54)
[2018-08-07] MEDS: SODIUM CHLOR 0.9% PF (SALINE LOCK) 10ML VIAL/SYR IV SCH ×2 (09:28→21:54)
[2018-08-07] MEDS ORDERED: CALCIUM GLUC 4.65meq/50ml D5AE 50 ML IV ONE (12:00)
[2018-08-07] MEDS ORDERED: LISINOPRIL 10 MG TAB PO ONE (12:30)
[2018-08-07] MEDS ORDERED: BISACODYL 10 MG RECT SUPP PR ONE (12:30)
[2018-08-07] MEDS: METOCLOPRAMIDE HCL 5MG/ml INJ 2ml VIAL IV SCH ×2 (14:31→21:53)
[2018-08-07] MEDS ORDERED: TPN PER PHARMACY IV NR ×10 (20:00)
[2018-08-07] MEDS: LABETALOL HCL 5 MG/ML ML 20ML VIAL IV PRN (22:09)
[2018-08-08] VITALS (27 sets, daily range): BP systolic 139–184; BP diastolic 85–112
[2018-08-08] MEDS: LORazepam 2MG/ML-1ML VIAL IV PRN ×3 (00:34→13:51)
[2018-08-08] MEDS: ACCU-CHEK COMFORT CURVE STRIP VI SCH ×4 (00:55→17:39)
[2018-08-08] MEDS: InsuLIN REG 1unit/0.01ml Soln (100units/ml) SC SCH ×4 (00:55→17:38)
[2018-08-08] MEDS: MORPHINE SULFATE 4 MG/ML SYR/VIAL IV PRN ×5 (02:01→22:15)
[2018-08-08] MEDS: VANCOMYCIN 1,250 MG in D5W 5% 250 ML IV SCH ×2 (02:05→15:04)
[2018-08-08] MEDS: ONDANSETRON HCL 4 MG/2 ML VIAL IV PRN (02:12)
[2018-08-08] MEDS: LABETALOL HCL 5 MG/ML ML 20ML VIAL IV PRN ×2 (02:16→06:27)
[2018-08-08 04:10] LABS: Hemoglobin 10.3 g/dL (12.2-16.2)
[2018-08-08 04:13] LABS: Hematocrit 31.8 % (36.0-46.0); Mean Corpuscular Hemoglobin 29.7 pg (28.0-32.0); Mean Corpuscular Hgb Conc. 32.4 g/dL (32.0-36.0); Mean Corpuscular Volume 91.6 fL (80.0-100.0); Platelet Count (auto) 492 10^3/uL (140-450); Red Blood Cells 3.47 10^6/uL (4.0-5.20)
[2018-08-08 04:22] LABS: Basophils % (manual) 0 (0.0-2.0); Blast Cells 0; Metamyelocytes % 0; Myelocytes % 0; Promyelocytes % 0; Reactive Lymphocytes 0
[2018-08-08 04:29] LABS: Albumin 2.5 g/dL (3.4-5.0); BUN/Creatinine Ratio 27.7; Bilirubin, Total 2.5 mg/dL (0.2-1.0); Calcium 7.2 mg/dL (8.5-10.1); Magnesium 2.2 mg/dL (1.6-2.6); Phosphorus 3.8 mg/dL (2.5-4.90); Potassium 5.1 mmol/L (3.5-5.1); Total Protein 6.8 g/dL (6.4-8.2)
[2018-08-08 05:11] LABS: Band Neutrophils % (manual) 2; Eosinophils % (manual) 2 (0-7)
[2018-08-08 05:12] LABS: Lymphocytes % (manual) 9 (10.0-50.0); Monocytes % (manual) 9 (0-12)
[2018-08-08] MEDS: PIPERACILLIN-TAZOB 3.375GM 100 ML IV SCH ×4 (05:19→22:00)
[2018-08-08] MEDS: METOCLOPRAMIDE HCL 5MG/ml INJ 2ml VIAL IV SCH ×3 (06:28→22:58)
[2018-08-08] MEDS: LEVOTHYROXINE SODIUM 100 MCG TAB PO SCH (06:37)
[2018-08-08] MEDS: ALBUTEROL SULF 2.5 MG/0.5ML(0.5%) NEB SOLN NEB PRN (07:17)
[2018-08-08] MEDS: HYDROcodone-ACET 5/325MG TAB PO PRN (07:52)
[2018-08-08] MEDS: MICAFUNGIN SODIUM 100 MG in SODIUM CHL 0.9% 100 ML IV SCH (08:38)
[2018-08-08] MEDS ORDERED: POLYETHYLENE GLYCOL 17 GM PWDR PO ONE (10:00)
[2018-08-08] MEDS ORDERED: POLYETHYLENE GLYCOL 17 GM PWDR PO PRN (10:00)
[2018-08-08] MEDS: PANTOPRAZOLE 40 MG TAB PO SCH (10:23)
[2018-08-08] MEDS: LISINOPRIL 10 MG TAB PO SCH (10:24)
[2018-08-08] MEDS: SODIUM CHLOR 0.9% PF (SALINE LOCK) 10ML VIAL/SYR IV SCH ×2 (10:24→22:00)
[2018-08-08] MEDS: DULoxetine HCL 30 MG CAP PO SCH (10:30)
[2018-08-08] MEDS ORDERED: CALCIUM GLUC 4.65meq/50ml D5AE 50 ML IV ONE (13:00)
[2018-08-08] MEDS ORDERED: LEVO88TA4 PO (19:08)
[2018-08-08] MEDS ORDERED: MIRT45TA6 PO (19:10)
[2018-08-08] MEDS ORDERED: DENO60SO SC (19:11)
[2018-08-08] MEDS ORDERED: TPN PER PHARMACY IV NR ×10 (20:00)
[2018-08-08] MEDS ORDERED: LORazepam 0.5 MG TAB PO ONE (22:00)
[2018-08-08] MEDS: ABILIFY 5MG TABLET PO SCH (22:00)
[2018-08-08] MEDS ORDERED: traZODone HCL 50 MG TAB PO SCH (22:00)
[2018-08-09] MEDS: VANCOMYCIN 1,250 MG in D5W 5% 250 ML IV SCH (01:59)
[2018-08-09] MEDS: MORPHINE SULFATE 4 MG/ML SYR/VIAL IV PRN ×4 (03:04→22:30)
[2018-08-09] MEDS: LABETALOL HCL 5 MG/ML ML 20ML VIAL IV PRN ×2 (03:59→06:28)
[2018-08-09] MEDS: PIPERACILLIN-TAZOB 3.375GM 100 ML IV SCH (04:00)
[2018-08-09 06:00] VITALS: BP 170/97
[2018-08-09] MEDS: InsuLIN REG 1unit/0.01ml Soln (100units/ml) SC SCH ×2 (06:00)
[2018-08-09 06:23] LABS: Basophils # (auto) 0.1 uL; Basophils % (auto) 0.6 % (0.0-2.0); Eosinophils # (auto) 0.2 uL; Eosinophils % (auto) 1.3 % (0.0-7.0); Hematocrit 35.9 % (36.0-46.0); Hemoglobin 11.1 g/dL (12.2-16.2); Lymphocytes # (auto) 1.8 uL; Lymphocytes % (auto) 9.9 % (10.0-50.0); Mean Corpuscular Hemoglobin 29.8 pg (28.0-32.0); Mean Corpuscular Hgb Conc. 30.9 g/dL (32.0-36.0); Mean Corpuscular Volume 96.6 fL (80.0-100.0); Monocytes # (auto) 1.2 uL; Monocytes % (auto) 6.7 % (0.0-12.0); Neutrophils # (auto) 14.7 uL; Neutrophils % (auto) 81.5 % (37.0-80.0); Nucleated Red Blood Cells % 0.1 %; Platelet Count (auto) 496 10^3/uL (140-450); Red Blood Cells 3.72 10^6/uL (4.0-5.20); Red Cell Distribution Width 15.4 % (11.8-14.3)
[2018-08-09] MEDS: METOCLOPRAMIDE HCL 5MG/ml INJ 2ml VIAL IV SCH (06:26)
[2018-08-09] MEDS: ACCU-CHEK COMFORT CURVE STRIP VI SCH ×2 (06:27)
[2018-08-09 06:33] LABS: Albumin 2.7 g/dL (3.4-5.0); Bilirubin, Total 1.6 mg/dL (0.2-1.0); Calcium 7.8 mg/dL (8.5-10.1); Magnesium 2.5 mg/dL (1.6-2.6); Phosphorus 2.9 mg/dL (2.5-4.90); Potassium 3.9 mmol/L (3.5-5.1); Total Protein 6.9 g/dL (6.4-8.2)
[2018-08-09] MEDS: LEVOTHYROXINE SODIUM 100 MCG TAB PO SCH (07:00)
[2018-08-09] MEDS ORDERED: VANCOMYCIN PER PHARMACY 0 MG IV SCH (08:00)
[2018-08-09 09:00] VITALS: BP 168/98
[2018-08-09] MEDS: PANTOPRAZOLE 40 MG TAB PO SCH (09:37)
[2018-08-09] MEDS: DULoxetine HCL 30 MG CAP PO SCH (09:37)
[2018-08-09] MEDS: HYDROcodone-ACET 10/325MG TAB PO PRN ×2 (09:37→17:52)
[2018-08-09] MEDS: SODIUM CHLOR 0.9% PF (SALINE LOCK) 10ML VIAL/SYR IV SCH ×2 (09:38→22:30)
[2018-08-09] MEDS: LISINOPRIL 10 MG TAB PO SCH (09:38)
[2018-08-09] MEDS ORDERED: ENOXAPARIN SOD 40 MG/0.4 ML SYRINGE SC SCH (10:00)
[2018-08-09 13:00] VITALS: BP 150/108
[2018-08-09 17:00] VITALS: BP 150/106
[2018-08-09] MEDS ORDERED: TPN PER PHARMACY IV NR ×10 (20:00)
[2018-08-09 22:00] VITALS: BP 156/94
[2018-08-09] MEDS: LORazepam 0.5 MG TAB PO PRN (22:30)
[2018-08-09] MEDS: ABILIFY 5MG TABLET PO SCH (22:30)
[2018-08-10 01:20] LABS: Eosinophils # (auto) 0.2 uL; Lymphocytes # (auto) 2.5 uL
[2018-08-10 01:22] LABS: Basophils # (auto) 0.3 uL; Basophils % (auto) 1.5 % (0.0-2.0); Eosinophils % (auto) 1.1 % (0.0-7.0); Hematocrit 31.5 % (36.0-46.0); Hemoglobin 10.2 g/dL (12.2-16.2); Lymphocytes % (auto) 14.2 % (10.0-50.0); Mean Corpuscular Hemoglobin 29.4 pg (28.0-32.0); Mean Corpuscular Hgb Conc. 32.5 g/dL (32.0-36.0); Mean Corpuscular Volume 90.6 fL (80.0-100.0); Monocytes % (auto) 5.5 % (0.0-12.0); Neutrophils # (auto) 13.9 uL; Neutrophils % (auto) 77.7 % (37.0-80.0); Nucleated Red Blood Cells % 0.1 %; Platelet Count (auto) 527 10^3/uL (140-450); Red Blood Cells 3.47 10^6/uL (4.0-5.20); Red Cell Distribution Width 14.7 % (11.8-14.3); White Blood Cell 17.9 10^3/uL (4.4-10.8)
[2018-08-10 05:00] VITALS: BP 145/95
[2018-08-10 06:16] LABS: Hematocrit 32.7 % (36.0-46.0); Mean Corpuscular Hemoglobin 30.3 pg (28.0-32.0); Monocytes # (auto) 1.2 uL; Nucleated Red Blood Cells % 0.1 %; White Blood Cell 19.6 10^3/uL (4.4-10.8)
[2018-08-10 06:23] LABS: Basophils # (auto) 0.2 uL; Basophils % (auto) 1.1 % (0.0-2.0); Eosinophils # (auto) 0.3 uL; Eosinophils % (auto) 1.4 % (0.0-7.0); Hemoglobin 10.7 g/dL (12.2-16.2); Lymphocytes # (auto) 3.1 uL; Lymphocytes % (auto) 15.7 % (10.0-50.0); Mean Corpuscular Hgb Conc. 32.9 g/dL (32.0-36.0); Mean Corpuscular Volume 92.2 fL (80.0-100.0); Neutrophils # (auto) 14.9 uL; Neutrophils % (auto) 75.8 % (37.0-80.0); Platelet Count (auto) 446 10^3/uL (140-450); Red Blood Cells 3.54 10^6/uL (4.0-5.20); Red Cell Distribution Width 14.9 % (11.8-14.3)
[2018-08-10] MEDS: LEVOTHYROXINE SODIUM 100 MCG TAB PO SCH (06:52)
[2018-08-10 07:01] LABS: Albumin 2.7 g/dL (3.4-5.0); BUN/Creatinine Ratio 36.1; Bilirubin, Total 1.3 mg/dL (0.2-1.0); Calcium 7.8 mg/dL (8.5-10.1); Magnesium 2.5 mg/dL (1.6-2.6); Phosphorus 3.6 mg/dL (2.5-4.90); Potassium 3.8 mmol/L (3.5-5.1); Total Protein 6.4 g/dL (6.4-8.2)
[2018-08-10] MEDS: HYDROcodone-ACET 10/325MG TAB PO PRN ×2 (09:00→17:59)
[2018-08-10] MEDS: cloNIDine HCL 0.1 MG TAB PO PRN (09:01)
[2018-08-10 09:15] VITALS: BP 153/77
[2018-08-10] MEDS: DULoxetine HCL 30 MG CAP PO SCH (10:39)
[2018-08-10] MEDS: PANTOPRAZOLE 40 MG TAB PO SCH (10:39)
[2018-08-10] MEDS: SODIUM CHLOR 0.9% PF (SALINE LOCK) 10ML VIAL/SYR IV SCH ×2 (10:40→21:50)
[2018-08-10] MEDS: LISINOPRIL 10 MG TAB PO SCH (10:40)
[2018-08-10] MEDS: MORPHINE SULFATE 4 MG/ML SYR/VIAL IV PRN ×3 (10:42→20:39)
[2018-08-10] MEDS ORDERED: ENOXAPARIN SOD 60 MG/0.6 ML SYRINGE SC SCH (10:45)
[2018-08-10 11:08] LABS: Free T4 (Free Thyroxine) 0.6 ng/dL (0.89-1.76)
[2018-08-10 11:09] LABS: Free T3 1.17 pg/mL (2.3-4.2)
[2018-08-10 11:28] VITALS: BP 167/100
[2018-08-10] MEDS ORDERED: LISINOPRIL 10 MG TAB PO ONE (12:15)
[2018-08-10] MEDS ORDERED: LEVOTHYROXINE SODIUM 100 MCG/5 ML INJ IV ONE (12:15)
[2018-08-10 13:00] VITALS: BP 170/88
[2018-08-10 17:13] VITALS: BP 149/74
[2018-08-10] MEDS: Ensure Enlive Chocolate 8oz Bottle PO SCH (19:30)
[2018-08-10] MEDS: ABILIFY 5MG TABLET PO SCH (21:45)
[2018-08-10] MEDS: LORazepam 0.5 MG TAB PO PRN (21:47)
[2018-08-10 22:00] VITALS: BP 149/106
[2018-08-11] MEDS ORDERED: CYTOMEL 5 MCG PO SCH
[2018-08-11] MEDS ORDERED: LEVOTHYROXINE SODIUM 100 MCG TAB PO SCH
[2018-08-11 05:00] VITALS: BP 159/102
[2018-08-11] MEDS: cloNIDine HCL 0.1 MG TAB PO PRN (06:14)
[2018-08-11] MEDS: MORPHINE SULFATE 4 MG/ML SYR/VIAL IV PRN ×2 (06:15→10:42)
[2018-08-11 06:30] LABS: Eosinophils # (auto) 0.2 uL; Hemoglobin 10.9 g/dL (12.2-16.2); Mean Corpuscular Hemoglobin 29.9 pg (28.0-32.0); Mean Corpuscular Hgb Conc. 33.1 g/dL (32.0-36.0)
[2018-08-11 06:32] LABS: Basophils # (auto) 0.2 uL; Basophils % (auto) 1.2 % (0.0-2.0); Eosinophils % (auto) 1.3 % (0.0-7.0); Lymphocytes # (auto) 2.6 uL; Lymphocytes % (auto) 18.3 % (10.0-50.0); Mean Corpuscular Volume 90.4 fL (80.0-100.0); Monocytes # (auto) 0.9 uL; Monocytes % (auto) 6.5 % (0.0-12.0); Neutrophils # (auto) 10.5 uL; Neutrophils % (auto) 72.7 % (37.0-80.0); Platelet Count (auto) 652 10^3/uL (140-450); Red Blood Cells 3.65 10^6/uL (4.0-5.20); Red Cell Distribution Width 14.8 % (11.8-14.3); White Blood Cell 14.5 10^3/uL (4.4-10.8)
[2018-08-11 06:47] LABS: BUN/Creatinine Ratio 37.5; Calcium 8.7 mg/dL (8.5-10.1); Potassium 3.9 mmol/L (3.5-5.1)
[2018-08-11] MEDS: Ensure Enlive Chocolate 8oz Bottle PO SCH ×2 (08:20→12:05)
[2018-08-11 08:52] VITALS: BP 158/96
[2018-08-11] MEDS ORDERED: ENOXAPARIN SOD 40 MG/0.4 ML SYRINGE SC SCH (10:00)
[2018-08-11] MEDS ORDERED: LISINOPRIL 20 MG TAB PO SCH (10:00)
[2018-08-11] MEDS: PANTOPRAZOLE 40 MG TAB PO SCH (10:46)
[2018-08-11] MEDS: SODIUM CHLOR 0.9% PF (SALINE LOCK) 10ML VIAL/SYR IV SCH (10:46)
[2018-08-11] MEDS: DULoxetine HCL 30 MG CAP PO SCH (10:47)
[2018-08-11 13:00] VITALS: BP 153/95
[2018-08-11 13:49] VITALS: BP 158/95
[2018-08-11 14:15] VITALS: BP 153/95
[2018-08-11] MEDS: HYDROcodone-ACET 10/325MG TAB PO PRN (14:43)
== END 2018-08-11 15:30 | disposition home health service (06) | DRG 870 ==
LOC: ER 14:05 → EDUNIT# 14:05 → EDBD 14:05 → OVERFLOW 14:06 → ICU WEST 17:56 → TELE-EAST 08-08 11:14 → EAST 08-09 13:26
PROVIDERS: ADMIT Internal Medicine; ATTEND Internal Medicine
PROC: 5A1955Z Respiratory Ventilation, Greater than 96 Consecutive Hours (ICD-10-PCS; principal; 2018-07-25)
PROC: 0BH17EZ Insertion of Endotracheal Airway into Trachea, Via Natural or Artificial Opening (ICD-10-PCS; 2018-07-25)
PROC: 30233N1 Transfusion of Nonautologous Red Blood Cells into Peripheral Vein, Percutaneous Approach (ICD-10-PCS; 2018-07-25)
PROC: 04L23DZ Occlusion of Gastric Artery with Intraluminal Device, Percutaneous Approach (ICD-10-PCS; 2018-07-25)
PROC: B41F1ZZ Fluoroscopy of Right Lower Extremity Arteries using Low Osmolar Contrast (ICD-10-PCS; 2018-07-25)
PROC: B4141ZZ Fluoroscopy of Superior Mesenteric Artery using Low Osmolar Contrast (ICD-10-PCS; 2018-07-25)
PROC: B4101ZZ Fluoroscopy of Abdominal Aorta using Low Osmolar Contrast (ICD-10-PCS; 2018-07-25)
PROC: B41F1ZZ Fluoroscopy of Right Lower Extremity Arteries using Low Osmolar Contrast (ICD-10-PCS; 2018-07-27)
PROC: B4141ZZ Fluoroscopy of Superior Mesenteric Artery using Low Osmolar Contrast (ICD-10-PCS; 2018-07-27)
PROC: B4101ZZ Fluoroscopy of Abdominal Aorta using Low Osmolar Contrast (ICD-10-PCS; 2018-07-27)
PROC: B4121ZZ Fluoroscopy of Hepatic Artery using Low Osmolar Contrast (ICD-10-PCS; 2018-07-27)
PROC: 3E0436Z Introduction of Nutritional Substance into Central Vein, Percutaneous Approach (ICD-10-PCS; 2018-07-28)
PROC: 0W9B3ZZ Drainage of Left Pleural Cavity, Percutaneous Approach (ICD-10-PCS; 2018-07-31)
PROC: BB4BZZZ Ultrasonography of Pleura (ICD-10-PCS; 2018-07-31)
PROC: 02HV33Z Insertion of Infusion Device into Superior Vena Cava, Percutaneous Approach (ICD-10-PCS; 2018-08-04)
PROC: 02HV33Z Insertion of Infusion Device into Superior Vena Cava, Percutaneous Approach (ICD-10-PCS; 2018-08-05)
DX: A41.9 Sepsis, unspecified organism (principal); R65.21 Severe sepsis with septic shock; N17.0 Acute kidney failure with tubular necrosis; G92 Toxic encephalopathy; K85.90 Acute pancreatitis without necrosis or infection, unspecified; J96.20 Acute and chronic respiratory failure, unspecified whether with hypoxia or hypercapnia; R57.1 Hypovolemic shock; G93.6 Cerebral edema; K92.2 Gastrointestinal hemorrhage, unspecified; E87.2 Acidosis; J90 Pleural effusion, not elsewhere classified; J81.1 Chronic pulmonary edema; J98.11 Atelectasis; N39.0 Urinary tract infection, site not specified; Z99.11 Dependence on respirator [ventilator] status; G90.50 Complex regional pain syndrome I, unspecified; K86.89 Other specified diseases of pancreas; D50.0 Iron deficiency anemia secondary to blood loss (chronic); E87.6 Hypokalemia; E87.70 Fluid overload, unspecified; E03.9 Hypothyroidism, unspecified; F32.9 Major depressive disorder, single episode, unspecified; F41.9 Anxiety disorder, unspecified; F90.9 Attention-deficit hyperactivity disorder, unspecified type; G89.4 Chronic pain syndrome; I10 Essential (primary) hypertension; K82.8 Other specified diseases of gallbladder; K83.8 Other specified diseases of biliary tract; M81.0 Age-related osteoporosis without current pathological fracture; I08.0 Rheumatic disorders of both mitral and aortic valves; I73.89 Other specified peripheral vascular diseases; I72.8 Aneurysm of other specified arteries; R79.89 Other specified abnormal findings of blood chemistry; F15.10 Other stimulant abuse, uncomplicated; F11.10 Opioid abuse, uncomplicated; F12.10 Cannabis abuse, uncomplicated; Z98.1 Arthrodesis status; Z79.899 Other long term (current) drug therapy; Z85.3 Personal history of malignant neoplasm of breast
CPT/HCPCS: 10022; 31500; 36415; 36569; 36600; 37242; 51702; 70450; 71045; 71260; 74018; 74176; 74177; 75710; 75726; 76000; 76604; 76700; 76937; 76942; 80048; 80053; 80061; 80202; 80307; 80320; 81001; 82010; 82040; 82140; 82150; 82805; 82962; 83605; 83690; 83735; 83880; 83986; 84100; 84132; 84439; 84443; 84478; 84481; 84484; 85007; 85014; 85018; 85025; 85027; 85045; 85610; 85730; 86850; 86900; 86901; 86920; 87040; 87070; 87081; 87086; 87205; 89051; 93005; 93306; 93971; 94002; 94003; 94640; 95819; 96361; 96365; 96375; 99152; 99153; 99291; A4618; A6257; C9113; J0330; J0610; J1450; J1815; J2001; J2248; J2250; J2405; J2543; J2704; J3480; J3490; J7060; J7131; P9047; Q9967